=== PATIENT | male | born 1960 | race Caucasian/White ===

== ENCOUNTER 2017-07-28 10:58 | Emergency (ER) | payer SELFPAY ==
[2017-07-28] MEDS ORDERED: AMOXicillin 250 MG CAP ONE (12:05)
[2017-07-28] MEDS ORDERED: Benzonatate 100 MG CAP ONE (12:05)
[2017-07-28] MEDS ORDERED: predniSONE 20 MG TAB ONE (12:05)
--- NOTE | 2017-07-28 12:26 | RAD ---
RADIOGRAPH CHEST 1 VIEW: HISTORY: 57-year-old male with acute cough. FINDINGS: There is hyperinflation of the lungs, consistent with COPD. There is no evidence of air space densit y, pneumothorax, or pulmonary edema. The lateral costophrenic angles are sharp. No cardiomegaly. IMPRESSION: 1. No acute pulmonary findings. 2. Emphysema. jnr POS: [facility]
== END 2017-07-28 13:16 | disposition home or self-care (01) ==
LOC: MADERS 10:58
DX: J20.9 Acute bronchitis, unspecified (principal)
CPT/HCPCS: 71045; 94640; 94760; J7506; J7620